=== PATIENT | male | born 1980 | race Caucasian/White ===

== ENCOUNTER 2017-04-02 16:17 | Emergency (ER) | payer OTHER ==
[~2017-04-02] VITALS: Ht 193 cm; Wt 95.3 kg
[2017-04-02 16:46] VITALS: BP 138/86
[2017-04-02] MEDS ORDERED: NAPROXEN 500 MG TABLET PO STA (16:57)
[2017-04-02] MEDS ORDERED: HYDROcodone/APAP 5/325MG 1 TAB TABLET PO ONE (17:15)
[2017-04-02] MEDS ORDERED: CYCLOBENZAPRINE 10 MG TABLET. PO ONE (17:15)
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
[2017-04-02] MEDS ORDERED: NAPR500T8 PO (18:49)
[2017-04-02] MEDS ORDERED: CYCL10TA2 PO (18:49)
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
== END 2017-04-02 19:15 | disposition home or self-care (01) ==
LOC: ER 16:17
DX: S12.9XXA Fracture of neck, unspecified, initial encounter (principal); S32.009A Unspecified fracture of unspecified lumbar vertebra, initial encounter for closed fracture; F17.210 Nicotine dependence, cigarettes, uncomplicated; V59.88XA Occupant (driver) (passenger) of pick-up truck or van injured in other specified transport accidents, initial encounter; Y93.89 Activity, other specified; Y99.8 Other external cause status; Y92.488 Other paved roadways as the place of occurrence of the external cause
CPT/HCPCS: 72125; 72128; 99284-25

== ENCOUNTER 2017-08-06 12:30 | Emergency (ER) | payer SELFPAY, OTHER | END 2017-08-06 13:15 | disposition home or self-care (01) | LOC: ER 12:30 | DX: L03.116 Cellulitis of left lower limb (principal) | CPT/HCPCS: 99283 ==

== ENCOUNTER 2018-02-25 17:45 | Emergency (ER) | payer SELFPAY | END 2018-02-25 18:45 | disposition home or self-care (01) | LOC: ER 17:45 | DX: L02.413 Cutaneous abscess of right upper limb (principal); F17.200 Nicotine dependence, unspecified, uncomplicated; Z91.041 Radiographic dye allergy status | CPT/HCPCS: 99283 ==